=== PATIENT | female | born 1990 | race Caucasian/White ===

== ENCOUNTER 2022-04-10 12:08 | Outpatient (CLI) | payer OTHER, SELFPAY ==
[2022-04-10 14:11] LABS: Cholesterol* 149 mg/dL (90-199); HDL Cholesterol* 62 mg/dL (>=50); LDL Cholesterol Calculated 78 mg/dL (<100); Triglycerides* 46 mg/dL (40-149)
== END 2022-04-10 12:09 | disposition home or self-care (01) ==
PROVIDERS: Visit Provider Advanced Practice Midwife
DX: Z01.419 Encounter for gynecological examination (general) (routine) without abnormal findings (principal); R30.9 Painful micturition, unspecified; E04.9 Nontoxic goiter, unspecified; Z12.4 Encounter for screening for malignant neoplasm of cervix; Z11.3 Encounter for screening for infections with a predominantly sexual mode of transmission
CPT/HCPCS: 80061; 84443; 87086; 87624; 88175